=== PATIENT | female | born 1965 | race Caucasian/White ===

== ENCOUNTER → 2017-11-29 | Outpatient (CLI) | payer OTHER ==
[~2017-11-29] MED LIST: CHOL10002; DULO30 PO; LEVSOD88 PO; PSEU120ER PO; Prednisone50 MG PO; [UNRECOGNIZED DRUG - OTHER]
== END | disposition home or self-care (01) ==
LOC: LAB 13:00 → LAB SHORT 13:00
DX: R05 Cough (principal)
CPT/HCPCS: 87798

== ENCOUNTER 2018-02-16 15:24 | Emergency (ER) | payer OTHER ==
[~2018-02-16] VITALS: Ht 165.1 cm; Wt 107.0 kg
[2018-02-16] MEDS ORDERED: MAGOXI400 PO (15:30)
== END 2018-02-16 16:38 | disposition home or self-care (01) ==
LOC: ER 15:24
DX: M79.662 Pain in left lower leg (principal); Z88.0 Allergy status to penicillin; Z79.899 Other long term (current) drug therapy
CPT/HCPCS: 93971; 99283-25

== ENCOUNTER 2021-06-12 10:57 | Day surgery (SDC) | payer OTHER ==
[~2021-06-12] VITALS: Ht 167.6 cm; Wt 111.7 kg
[~2021-06-12 10:57] MED LIST changes: +MAGOXI400 PO
[2021-06-12] MEDS ORDERED: Inderal40 MG PO (11:26)
[2021-06-12] MEDS ORDERED: AMIT25 PO (11:26)
[2021-06-12] MEDS ORDERED: SERT50 PO (11:28)
--- NOTE | 2021-06-12 11:40 | NUR ---
06/12/21 1140 Cruzito Gunn VANCOMYCIN 1GM STARTED INFUSING ON PUMP AT 1139.
--- NOTE | 2021-06-12 15:02 | NUR ---
06/12/21 1502 LUIZ HERNANDEZ LEFT LEG LELA HOSE PUT ON BEFORE DISCHARGE
== END 2021-06-12 14:55 | disposition home or self-care (01) ==
LOC: ORSCSDS 10:57
PROVIDERS: Orthopaedic Surgery
PROC: 0SBD4ZZ Excision of Left Knee Joint, Percutaneous Endoscopic Approach (ICD-10-PCS; principal; 2021-06-12 15:30)
DX: S83.242A Other tear of medial meniscus, current injury, left knee, initial encounter (principal); S83.282A Other tear of lateral meniscus, current injury, left knee, initial encounter; I10 Essential (primary) hypertension; G47.33 Obstructive sleep apnea (adult) (pediatric); E03.9 Hypothyroidism, unspecified; F41.8 Other specified anxiety disorders; E66.01 Morbid (severe) obesity due to excess calories; Z68.39 Body mass index [BMI] 39.0-39.9, adult; Z79.899 Other long term (current) drug therapy
CPT/HCPCS: J1100; J1885; J2405; J2704; J3010; J3370

== ENCOUNTER 2022-07-26 10:15 | Day surgery (SDC) | payer OTHER ==
[~2022-07-26] VITALS: Ht 167.6 cm; Wt 110.6 kg
[~2022-07-26 10:15] MED LIST changes: +ACET500 PO; +AMIT25 PO; +BUSPIRONE HCL7.5 M1 PO; +IBUP800 PO; +Inderal40 MG PO; +MAGNESIUM PO; +Robaxin750 MG PO; +SERT50 PO; +THYR60 PO; +TRAZ50 PO; +VENL75ER PO; +VITAMIN D310 MC4 PO
--- NOTE | 2022-07-26 19:37 | NUR ---
SHIFT SUMMARY PT A&OX4, VSS/RA, BETHEL PO, VOIDING, AMB SBA FWW & GB-PT EVAL'D/UP TO CHAIR, BLE ELEVATED, PAIN MANAGED WITH NORCO 5 MG AND TORADOL. S/P L TKA, AQUACEL D/T, POLAR BERNARDO ON. REPORT PROVIDED TO WILL MORRIS.
--- NOTE | 2022-07-27 04:28 | NUR ---
SHIFT SUMMARY PT RESTED WELL T/O SHIFT. NO ACUTE CHANGES. AQUACEL DRESSING TO LEFT KNEE REMAINS CDI WITH POLAR PACK IN PLACE. 2 NORCO/TYLENOL/TORADOL FOR PAIN MANAGEMENT. 1 ASSIST TO BATHROOM USING FWW + GB. VSS. USES CALL LIGHT APPROPRIATELY.
[2022-07-27 05:35] LABS: BASOPHILS PERCENT AUTO 0 % (0-2); EOSINOPHILS PERCENT AUTO 0 % (0-6); Hematocrit 31.9 % (33.0-51.0); Hemoglobin 10.7 g/dL (11.5-16.0); IMMATURE GRAN ABSOLUTE AUTO 0.02 K/mm3 (0.00-0.10); IMMATURE GRAN PERCENT AUTO 0 % (0-1); LYMPHOCYTES PERCENT AUTO 14 % (21-46); MONOCYTES PERCENT AUTO 6 % (4-13); Mean Corpuscular HGB 29.9 pg (26.0-34.0); Mean Corpuscular HGB Conc 33.5 g/dL (31.5-36.5); Mean Corpuscular Volume 89 fL (80-100); Mean Platelet Volume 10.3 fL (9.1-12.4); NEUTROPHILS ABSOLUTE AUTO 5.85 K/mm3 (1.96-9.15); NEUTROPHILS PERCENT AUTO 80 % (41-73); Platelet Count 203 K/mm3 (150-400); RDW Coefficient Variation 13.8 % (11.7-14.2); Red Blood Cell Count 3.58 M/mm3 (3.80-5.20); White Blood Cell Count 7.27 K/mm3 (4.00-11.30)
[2022-07-27 05:50] LABS: Bun/Creatinine Ratio 19.5 (12.0-20.0); Calcium, Blood 8.3 mg/dL (8.5-10.1); Creatinine, Blood 0.77 mg/dL (0.40-1.00); Potassium, Blood 5.1 mmol/L (3.5-5.5)
[2022-07-27] MEDS ORDERED: HYDR1TAB94 PO (09:12)
[2022-07-27] MEDS ORDERED: ASPIR 8181 M1 PO (09:12)
--- NOTE | 2022-07-27 10:15 | NUR ---
DISCHARGE SUMMARY PT A&OX4, VSS/RA, BETHEL PO, VOIDING WELL, PAIN MANAGED, AMB SBA FWW, IV DC'D. DC INS PROVIDED. PT REP UNDERSTANDING THOSE INSTRUCTIONS INCLUDING FU APPT, DRESSING CHANGES, SHORT FREQU AMB W/REST PERIODS, PHYSICAL THERAPY OUTPT, SCRIPTS ARE AT [facility] [place] . LEFT FLOOR VIA WC WITH CREDIT COLLECTIONS MANAGER TO GO HOME WITH , WITH ALL PERSONAL POSSESSIONS INCLUDING DC PACKET AND AQUACEL DRESSINGS.
== END 2022-07-27 10:12 | disposition home or self-care (01) ==
LOC: ORSCMMR 10:15 → ORD 12:30 → SURS 14:21 → ORD 15:15 → ORSCMMR 07-27 10:12
PROVIDERS: Orthopaedic Surgery
PROC: 8E0Y0CZ Robotic Assisted Procedure of Lower Extremity, Open Approach (ICD-10-PCS; principal; 2022-07-26 12:30)
PROC: 0SRD0JA Replacement of Left Knee Joint with Synthetic Substitute, Uncemented, Open Approach (ICD-10-PCS; principal; 2022-07-26 12:30)
DX: M17.12 Unilateral primary osteoarthritis, left knee (principal); I10 Essential (primary) hypertension; E11.9 Type 2 diabetes mellitus without complications; E03.9 Hypothyroidism, unspecified; F41.8 Other specified anxiety disorders; M79.7 Fibromyalgia; E66.9 Obesity, unspecified; Z68.39 Body mass index [BMI] 39.0-39.9, adult; H81.09 Meniere's disease, unspecified ear; Z79.899 Other long term (current) drug therapy
CPT/HCPCS: 27447; 0055T; S2900; 36415; 73560-LT; 80048; 82947; 83735; 85025; 97110; 97116; 97162; 97530; A9270; C1776; J0171; J0735; J1100; J1885; J2250; J2370; J2405; J2704; J2795; J3010; J7120

== ENCOUNTER → 2023-09-29 | Outpatient (CLI) | payer OTHER ==
[~2023-09-29] MED LIST changes: +ASPIR 8181 M1 PO; +HYDR1TAB94 PO
== END ==
LOC: LAB 07:35 → LAB SHORT 07:35
DX: D23.62 Other benign neoplasm of skin of left upper limb, including shoulder (principal); L08.89 Other specified local infections of the skin and subcutaneous tissue
CPT/HCPCS: 88305

== ENCOUNTER 2025-01-20 10:18 | Emergency (ER) | payer OTHER ==
[~2025-01-20] VITALS: Ht 167.6 cm; Wt 104.3 kg
[2025-01-20 10:48] LABS: BASOPHILS ABSOLUTE AUTO 0.02 K/mm3 (0.00-0.23); BASOPHILS PERCENT AUTO 0 % (0-2); EOSINOPHILS ABSOLUTE AUTO 0.17 K/mm3 (0.00-0.68); EOSINOPHILS PERCENT AUTO 3 % (0-6); Hematocrit 40.4 % (33.0-51.0); Hemoglobin 12.8 g/dL (11.5-16.0); IMMATURE GRAN ABSOLUTE AUTO 0.01 K/mm3 (0.00-0.10); IMMATURE GRAN PERCENT AUTO 0 % (0-1); LYMPHOCYTES ABSOLUTE AUTO 1.39 K/mm3 (0.84-5.20); LYMPHOCYTES PERCENT AUTO 26 % (21-46); MONOCYTES ABSOLUTE AUTO 0.25 K/mm3 (0.16-1.47); MONOCYTES PERCENT AUTO 5 % (4-13); Mean Corpuscular HGB Conc 31.7 g/dL (31.5-36.5); Mean Corpuscular Volume 90 fL (80-100); NEUTROPHILS ABSOLUTE AUTO 3.42 K/mm3 (1.96-9.15); NEUTROPHILS PERCENT AUTO 65 % (41-73); NRBC ABSOLUTE 0.00 K/mm3 (0.00-0.02); NRBC Auto 0.0 /100 WBC (0.0-0.2); Platelet Count 237 K/mm3 (150-400); RDW Coefficient Variation 14.6 % (11.7-14.2); RDW Standard Deviation 47.8 fL (35.1-46.3)
[2025-01-20 11:11] VITALS: BP 139/78
[2025-01-20 11:16] LABS: Alanine Aminotransfer (ALT/SGP 25.0 U/L (12-78); Albumin, Blood 3.3 g/dL (3.4-5.0); Albumin/Globulin Ratio 0.9 (0.8-1.8); Aspartate Aminotrans (AST/SGOT 23.0 U/L (12-37); Bilirubin, Total 0.7 mg/dL (0.1-1.0); Blood Urea Nitrogen 11.0 mg/dL (8-24); CO2, Blood 25.0 mmol/L (21-32); Calcium, Blood 8.5 mg/dL (8.5-10.1); Chloride, Blood 108.0 mmol/L (98-108); Creatinine, Blood 0.67 mg/dL (0.40-1.00); Globulin, Blood 3.7 g/dL (2.2-4.0); Glucose, Blood 133.0 mg/dL (70-99); Potassium, Blood 3.6 mmol/L (3.5-5.5); Total Protein, Blood 7.0 g/dL (6.4-8.2)
[2025-01-20 12:21] LABS: Anion Gap 10.0 mmol/L (3-11); Sodium, Blood 139.0 mmol/L (136-145)
== END 2025-01-20 12:29 | disposition home or self-care (01) ==
LOC: ER 10:18
PROVIDERS: Physician Assistant
DX: T81.49XA Infection following a procedure, other surgical site, initial encounter (principal); L03.113 Cellulitis of right upper limb; Z88.5 Allergy status to narcotic agent; Z88.0 Allergy status to penicillin; Z88.1 Allergy status to other antibiotic agents; Z88.8 Allergy status to other drugs, medicaments and biological substances; Z79.890 Hormone replacement therapy; Z79.82 Long term (current) use of aspirin; Z79.899 Other long term (current) drug therapy
CPT/HCPCS: 73201; 80053; 85025; 99284-25; Q9967

== ENCOUNTER 2025-03-24 18:39 | Emergency (ER) | payer OTHER ==
[~2025-03-24] VITALS: Ht 167.6 cm; Wt 104.3 kg
[2025-03-24 19:35] LABS: BASOPHILS ABSOLUTE AUTO 0.03 K/mm3 (0.00-0.23); BASOPHILS PERCENT AUTO 0 % (0-2); EOSINOPHILS ABSOLUTE AUTO 0.11 K/mm3 (0.00-0.68); EOSINOPHILS PERCENT AUTO 2 % (0-6); Hematocrit 39.0 % (33.0-51.0); Hemoglobin 12.8 g/dL (11.5-16.0); IMMATURE GRAN ABSOLUTE AUTO 0.03 K/mm3 (0.00-0.10); IMMATURE GRAN PERCENT AUTO 0 % (0-1); LYMPHOCYTES ABSOLUTE AUTO 1.69 K/mm3 (0.84-5.20); LYMPHOCYTES PERCENT AUTO 25 % (21-46); MONOCYTES ABSOLUTE AUTO 0.54 K/mm3 (0.16-1.47); MONOCYTES PERCENT AUTO 8 % (4-13); Mean Corpuscular HGB Conc 32.8 g/dL (31.5-36.5); Mean Corpuscular Volume 87 fL (80-100); NEUTROPHILS ABSOLUTE AUTO 4.40 K/mm3 (1.96-9.15); NEUTROPHILS PERCENT AUTO 65 % (41-73); NRBC ABSOLUTE 0.00 K/mm3 (0.00-0.02); NRBC Auto 0.0 /100 WBC (0.0-0.2); Platelet Count 296 K/mm3 (150-400); RDW Coefficient Variation 14.4 % (11.7-14.2); RDW Standard Deviation 46.0 fL (35.1-46.3)
[2025-03-24] MEDS ORDERED: NS 1,000 ML IV SCH (19:40)
[2025-03-24] MEDS ORDERED: Morphine Sulfate 4 MG/1 ML Injection IV ONE (19:40)
[2025-03-24] MEDS ORDERED: Ondansetron HCl 2 MG / ML 2ML Vial IV ONE (19:40)
[2025-03-24 19:47] LABS: Alanine Aminotransfer (ALT/SGP 33.0 U/L (12-78); Albumin, Blood 3.7 g/dL (3.4-5.0); Albumin/Globulin Ratio 1.0 (0.8-1.8); Anion Gap 10.0 mmol/L (3-11); Aspartate Aminotrans (AST/SGOT 22.0 U/L (12-37); Bilirubin, Total 0.5 mg/dL (0.1-1.0); Blood Urea Nitrogen 18.0 mg/dL (8-24); CO2, Blood 25.0 mmol/L (21-32); Calcium, Blood 9.3 mg/dL (8.5-10.1); Chloride, Blood 107.0 mmol/L (98-108); Creatinine, Blood 0.82 mg/dL (0.40-1.00); Globulin, Blood 3.6 g/dL (2.2-4.0); Glucose, Blood 124.0 mg/dL (70-99); Potassium, Blood 3.9 mmol/L (3.5-5.5); Sodium, Blood 138.0 mmol/L (136-145); Total Protein, Blood 7.3 g/dL (6.4-8.2)
[2025-03-24 20:00] LABS: Magnesium, Blood 2.3 mg/dL (1.6-2.4)
[2025-03-24 20:05] LABS: Influenza A, PCR NEGATIVE (NEGATIVE); Influenza B, PCR NEGATIVE (NEGATIVE); Resp Syncytial Virus, PCR NEGATIVE (NEGATIVE); SARS-Cov-2 (COVID-19) PCR, MMC NEGATIVE (NEGATIVE)
[2025-03-24] MEDS ORDERED: Metoclopramide HCl 5MG / ML 2ML Vial IV ONE (21:10)
[2025-03-24] MEDS ORDERED: DiphenhydrAMINE HCl 50 MG/ML 1ML Vial IV ONE (21:10)
[2025-03-24 23:15] VITALS: BP 120/59
[2025-03-24] MEDS ORDERED: ONDA4 PO (23:18)
[2025-03-24] MEDS ORDERED: DICY20 PO (23:18)
[2025-03-24] MEDS ORDERED: RX Prepack 2 Tabs Ondansetron ODT 4MG UD ONE (23:20)
== END 2025-03-24 23:29 | disposition home or self-care (01) ==
LOC: ER 18:39
PROVIDERS: Emergency Medicine
DX: K92.0 Hematemesis (principal); Z88.5 Allergy status to narcotic agent; Z88.0 Allergy status to penicillin; Z88.1 Allergy status to other antibiotic agents; Z88.8 Allergy status to other drugs, medicaments and biological substances; Z79.890 Hormone replacement therapy; Z79.82 Long term (current) use of aspirin; Z79.899 Other long term (current) drug therapy
CPT/HCPCS: 70450; 71045; 74177; 80053; 83690; 83735; 85025; 87637; 96361; 96374-59; 96375; 99284-25; A9270; J1200; J2270; J2405; J2765; J7030; Q9967